=== PATIENT | female | born 1955 | race Caucasian/White ===

== ENCOUNTER → 2020-06-07 | Outpatient (CLI) | payer MEDICARE ==
[~2020-06-07] MED LIST: ASCO-96 PO; ASCO100018 PO; CALCIUM PO; CHOL10003 PO; CHOL200052 PO; CHOL5000 PO; CYAN1TAB29 SL; CYAN50004 PO; GLUC15006 PO; LACT1CAP37 PO; MULT-658 PO; OMEG1CAP23 PO; VITA1CAP PO; ZINC100T PO; potassium PO
== END | disposition home or self-care (01) ==
LOC: PETCFH 08:37
PROVIDERS: ATTEND Obstetrics & Gynecology
DX: D07.1 Carcinoma in situ of vulva (principal); K57.30 Diverticulosis of large intestine without perforation or abscess without bleeding; Z87.412 Personal history of vulvar dysplasia
CPT/HCPCS: 78815; A9552

== ENCOUNTER → 2020-06-27 | Outpatient (CLI) | payer MEDICARE | END | disposition home or self-care (01) | LOC: ROC 07:43 | PROVIDERS: ATTEND Radiology Radiation Oncology | DX: C51.9 Malignant neoplasm of vulva, unspecified (principal) | CPT/HCPCS: 99214; G0463 ==

== ENCOUNTER 2020-09-08 11:37 | Outpatient (CLI) | payer MEDICARE ==
[~2020-09-08 11:37] MED LIST changes: +ACID1TAB7 PO; +CALC1TAB68 PO; +DIPH1TAB6 PO; +LOPE-114 PO; +ONDA-89 PO; +SILV20CR13 TP
== END 2020-09-08 23:59 | disposition home or self-care (01) ==
LOC: ROC 11:37
PROVIDERS: ATTEND Radiology Radiation Oncology
DX: Z08 Encounter for follow-up examination after completed treatment for malignant neoplasm (principal); C51.9 Malignant neoplasm of vulva, unspecified; G89.3 Neoplasm related pain (acute) (chronic); E86.0 Dehydration; E83.51 Hypocalcemia; E87.6 Hypokalemia; E83.42 Hypomagnesemia; E03.9 Hypothyroidism, unspecified; Z87.891 Personal history of nicotine dependence; Z90.710 Acquired absence of both cervix and uterus
CPT/HCPCS: 99212; G0463

== ENCOUNTER → 2020-09-22 | Outpatient (CLI) | payer MEDICARE | END | disposition home or self-care (01) | LOC: ROC 08:25 | PROVIDERS: ATTEND Radiology Radiation Oncology | DX: C51.9 Malignant neoplasm of vulva, unspecified (principal); G89.3 Neoplasm related pain (acute) (chronic); E03.9 Hypothyroidism, unspecified; Z87.891 Personal history of nicotine dependence; Z90.710 Acquired absence of both cervix and uterus | CPT/HCPCS: 99212; G0463 ==

== ENCOUNTER → 2020-10-26 | Outpatient (CLI) | payer MEDICARE ==
[~2020-10-26] MED LIST changes: -LACT1CAP37 PO; +LACT1CAP47 PO
== END | disposition home or self-care (01) ==
LOC: ROC 07:38
PROVIDERS: ATTEND Radiology Radiation Oncology
DX: Z08 Encounter for follow-up examination after completed treatment for malignant neoplasm (principal); C51.9 Malignant neoplasm of vulva, unspecified; E03.9 Hypothyroidism, unspecified; G89.3 Neoplasm related pain (acute) (chronic); E86.0 Dehydration; E87.6 Hypokalemia; E83.51 Hypocalcemia; E83.42 Hypomagnesemia; Z90.710 Acquired absence of both cervix and uterus; Z87.891 Personal history of nicotine dependence
CPT/HCPCS: 99212; G0463

== ENCOUNTER → 2020-11-16 | Outpatient (CLI) | payer MEDICARE ==
[~2020-11-16] MED LIST changes: +OMNIPAQUE 350 MG/ML, 100ML BOTTLE ONE
== END | disposition home or self-care (01) ==
LOC: CFH 13:54
PROVIDERS: ATTEND Otolaryngology
DX: R22.1 Localized swelling, mass and lump, neck (principal)
CPT/HCPCS: 70491; 82565; Q9967

== ENCOUNTER → 2020-12-28 | Outpatient (CLI) | payer MEDICARE ==
[~2020-12-28] MED LIST changes: -OMNIPAQUE 350 MG/ML, 100ML BOTTLE ONE
== END | disposition home or self-care (01) ==
LOC: PETCFH 09:33
PROVIDERS: ATTEND Obstetrics & Gynecology
DX: C51.8 Malignant neoplasm of overlapping sites of vulva (principal); K57.30 Diverticulosis of large intestine without perforation or abscess without bleeding; J98.4 Other disorders of lung; N90.9 Noninflammatory disorder of vulva and perineum, unspecified; N90.1 Moderate vulvar dysplasia; N90.89 Other specified noninflammatory disorders of vulva and perineum; G89.3 Neoplasm related pain (acute) (chronic); I77.819 Aortic ectasia, unspecified site; I25.10 Atherosclerotic heart disease of native coronary artery without angina pectoris; Z87.412 Personal history of vulvar dysplasia
CPT/HCPCS: 78815; A9552